=== PATIENT | female | born 1940 | race Caucasian/White ===

== ENCOUNTER → 2021-01-12 | Outpatient (CLI) | payer MEDICARE ==
[~2021-01-12] MED LIST: ACETAMINOPHEN-1 EAC1 PO; ASPIRIN81 M2 PO; ATENOLOL 50 MG50 M1 PO; CARDIZEM CD180 MG PO; CARTIA; CARTIA XT180 M1 PO; CENTRUM SILVER1 EAC4 PO; COZAAR 50 MG TA50 M1 PO; DYAZIDE 37.5-21 EACH PO; HYDRALAZINE 2525 M1 PO; K-DUR 20 MEQ T20 MEQ PO; LOPRESSOR25 PO; LOPRESSOR50 PO; MACRODANTIN100 MG PO; MAXIDE PO; MEDROLDOSEPACK PO; METOPROLOL SUCC25 M1 PO; POTASSIUM20 PO; PROMETHAZINE D480 ML PO; SYNTHROID; SYNTHROID25 MCG PO; TENORMIN PO; TENORMIN50 MG PO; TESSALON PERLE100 MG PO; TRIAMCINOLONE A15 G1 TP; ZPAK PO
== END ==
LOC: M.RAD 09:00
PROVIDERS: ATTEND Family Medicine
DX: M85.80 Other specified disorders of bone density and structure, unspecified site (principal); Z78.0 Asymptomatic menopausal state